=== PATIENT | male | born 1945 | race Hispanic/Latino ===

== ENCOUNTER → 2019-09-23 | Day surgery (SDC) | payer OTHER ==
[2019-09-21 10:06] LABS: BASOPHILS # (AUTO) 0.1 (0.0-0.1); EOSINOPHILS # (AUTO) 0.1 (0.0-0.4); EOSINOPHILS % 2.2 % (0.0-6.0); HEMATOCRIT 42.5 % (38.2-49.6); LYMPHOCYTES # (AUTO) 1.6 (1.0-3.2); LYMPHOCYTES % 33.1 % (18.0-39.1); MEAN CORPUSCULAR HEMOGLOBIN 30.5 pg (28-32); MEAN CORPUSCULAR HGB CONC 32.9 g/dL (31-35); MEAN CORPUSCULAR VOLUME 92.6 fL (81-99); MONOCYTES # (AUTO) 0.5 (0.2-0.8); MONOCYTES % 10.2 % (4.4-11.3); NEUTROPHILS # (AUTO) 2.6 (2.1-6.9); NEUTROPHILS % 53.3 % (38.7-80.0); PLATELET COUNT 207 x10e3/uL (140-360); RED BLOOD COUNT 4.59 x10e6/uL (4.3-5.7); RED CELL DISTRIBUTION WIDTH 12.5 % (11.7-14.4)
[~2019-09-23] MED LIST: FENTANYL CITRATE/PF 100MCG/2 ML INJ ONE; LEVOTHYROXINE112 MCG PO; MUCINEX DM ER1 EACH PO; PROPOFOL IV EMULSION 10 MG/ML 50 ML VIAL ONE; VALSARTAN-HCTZ1 EAC3 PO
--- OUTSIDE RECORDS SUMMARY | 2019-09-23 07:18 | XMS REPORT ---
Author Organization Unknown Address [address] [place] [address] Phone [phone] Care Team Providers Care Hybrid Technologist Name Role Phone FRANSICO "ADELINE" IRIS WEST 3 [phone] Allergies Code Code System Name Reaction Severity Status Onset No Known Allergies Active Medications Name Status Start Date Stop Date amoxicillin 500 mg capsule Completed 09/04/2016 clarithromycin 250 mg tablet Completed 09/04/2016 Depo-Medrol 80 mg/mL suspension for injection injected 1 ml deep IM, once, as a single dose Active Not available diclofenac sodium 75 mg tablet,delayed release Active Not available fluticasone 50 mcg/actuation nasal spray,suspension alicar 2 esprays en cada fosa nasal magdaleno vez cada marcos Active Not available Fluzone High-Dose (PF) 180 mcg/0.5 mL intramuscular syringe Completed 09/04/2016 levocetirizine 5 mg tablet Completed 12/19/2017 levothyroxine 100 mcg tablet Active Not available losartan 100 mg tablet Completed 09/04/2016 losartan 100 mg-hydrochlorothiazide 25 mg tablet Active Not available pantoprazole 40 mg tablet,delayed release Active Not available Prevnar 13 (PF) 0.5 mL intramuscular syringe Completed 02/12/2017 promethazine-DM 6.25 mg-15 mg/5 mL syrup jose carlos 1 cucharadita por via oral cada 4 horas por symone necesaria Active Not available Problems Name Status Onset Date Source Hypothyroidism Active 02/01/2016 History Pure Hypercholesterolemia Active 02/01/2016 History Impotence Active 02/01/2016 History Pterygium Unknown 02/01/2016 History Hypertensive Disorder Active 02/01/2016 History Long-term Current Use of Drug Therapy Unknown 02/01/2016 History Gastroesophageal Reflux Disease Active 02/07/2017 Joint Pain Active 02/07/2017 Procedures Date Name Performed by 11/17/2000 Cholecystectomy Information not available Lab Results Date Name Specimen Result Interpretation Description Value Range Status Address 08/04/2017 CMP, Serum or Plasma Normal Glucose 93 mg/dL 65-99 mg/dL Final [facility] Laboratory: [address] [place] Normal Urea Nitrogen (BUN) 19 mg/dL 7-25 mg/dL Final [facility] Laboratory: [address] [place] Low Creatinine 0.65 mg/dL 0.70-1.18 mg/dL Final [facility] Laboratory: [address] Normal eGFR Non-afr. Honduran 97 mL/min/1.73m2 > or=60 mL/min/1.73m2 Final [facility] [address] [facility] [facility] Normal eGFR 113 mL/min/1.73m2 > or=60 mL/min/1.73m2 Final [facility]: [address] [facility] High BUN/creatinine Ratio 29 (calc) 6-22 (calc) Final [facility]: [address] Normal Sodium 140 mmol/L 135-146 mmol/L Final [facility] Laboratory: [address] [place] [address] Normal Potassium 3.5 mmol/L 3.5-5.3 mmol/L Final [facility] Laboratory: [address] [place] [address] Normal Chloride 106 mmol/L 98-110 mmol/L Final [facility]: [address] [facility] [facility] Normal Carbon Dioxide 27 mmol/L 20-31 mmol/L Final [facility] Laboratory: [address] [place] [address] Normal Calcium 8.8 mg/dL 8.6-10.3 mg/dL Final [facility] Laboratory: [address] [place] [address] Normal Protein, Total 6.3 g/dL 6.1-8.1 g/dL Final [facility] Laboratory: [address] [place] [address] Normal Albumin 4.3 g/dL 3.6-5.1 g/dL Final [facility] Laboratory: [address] Normal Globulin 2.0 g/dL (calc) 1.9-3.7 g/dL (calc) Final [facility] Laboratory: [address] Normal Albumin/globulin Ratio 2.2 (calc) 1.0-2.5 (calc) Final [facility] Laboratory: [address] Normal Bilirubin, Total 0.7 mg/dL 0.2-1.2 mg/dL Final [facility] Laboratory: [address] Normal Alkaline Phosphatase 52 U/L 40-115 U/L Final [facility] Laboratory: [address] Normal Ast 16 U/L 10-35 U/L Final [facility]: [address] Normal Alt 25 U/L 9-46 U/L Final [facility] Laboratory: [address] [place] [address], [place] 08/04/2017 Lipid Panel, Serum Normal Cholesterol, Total 184 mg/dL <200 mg/dL Final [facility] Laboratory: [address] Normal HDL Cholesterol 52 mg/dL >40 mg/dL Final [facility]: [address] Normal Triglycerides 103 mg/dL <150 mg/dL Final [facility] Laboratory: [address] High LDL-cholesterol 111 mg/dL (calc) Final [facility] Laboratory: [address] Normal Chol/hdlc Ratio 3.5 (calc) <5.0 (calc) Final [facility] Laboratory: [address] High Non HDL Cholesterol 132 mg/dL (calc) <130 mg/dL (calc) Final [facility] Laboratory: [address] [place] [address], [place] 08/04/2017 TSH, Serum or Plasma Normal Tsh 1.72 mIU/L 0.40-4.50 mIU/L Final [facility] Laboratory: [address] [address], [place] 08/04/2017 T4, Free, Serum Normal T4, Free 1.5 NG/dL 0.8-1.8 NG/dL Final [facility] Laboratory: [address] 02/12/2017 Lipid Panel, Serum High Cholesterol, Total 206 mg/dL 125- 200 mg/dL Final [facility] Lab: [address] Normal HDL Cholesterol 54 mg/dL > or=40 mg/dL Final [facility] Lab: [address] [place] Normal Triglycerides 77 mg/dL <150 mg/dL Final [facility]: [address] [facility] [place] High LDL-cholesterol 137 mg/dL (calc) <130 mg/dL (calc) Final [facility] Lab: [address], [place] Normal Chol/hdlc Ratio 3.8 (calc) < or=5.0 (calc) Final [facility] Lab: [address], [place] Normal Non HDL Cholesterol 152 mg/dL (calc) Final [facility] Lab: [address], [place] 02/12/2017 CMP, Serum or Plasma Normal Glucose 98 mg/dL 65-99 mg/dL Final [facility]: [address] [facility] [place] Normal Urea Nitrogen (BUN) 13 mg/dL 7-25 mg/dL Final [facility] Lab: [address] [facility], [place] Normal Creatinine 0.75 mg/dL 0.70-1.18 mg/dL Final [facility] Lab: [address] [facility], [place] Normal eGFR Non-afr. Honduran 92 mL/min/1.73m2 > or=60 mL/min/1.73m2 Final [facility] Lab: [address], [place] Normal eGFR 107 mL/min/1.73m2 > or=60 mL/min/1.73m2 Final [facility] Lab: [address], [place] BUN/creatinine Ratio not applicable (calc) 6-22 (calc) Final [facility] Lab: [address], [place] Normal Sodium 141 mmol/L 135-146 mmol/L Final [facility] Lab: [address], [place] Normal Potassium 3.6 mmol/L 3.5-5.3 mmol/L Final [facility] Lab: [address], [place] Normal Chloride 103 mmol/L 98-110 mmol/L Final [facility] Lab: [address], [place] Normal Carbon Dioxide 29 mmol/L 20-31 mmol/L Final [facility] Lab: [address], [place] Normal Calcium 9.2 mg/dL 8.6-10.3 mg/dL Final [facility] Lab: [address], [place] Normal Protein, Total 7.1 g/dL 6.1-8.1 g/dL Final [facility] Lab: [address], [place] Normal Albumin 4.5 g/dL 3.6-5.1 g/dL Final [facility] Lab: [address], [place] Normal Globulin 2.6 g/dL (calc) 1.9-3.7 g/dL (calc) Final [facility] Lab: [address], [place] Normal Albumin/globulin Ratio 1.7 (calc) 1.0-2.5 (calc) Final [facility]: [address] [facility] [place] Normal Bilirubin, Total 1.0 mg/dL 0.2-1.2 mg/dL Final [facility]: [address] [facility] [place] Normal Alkaline Phosphatase 63 U/L 40-115 U/L Final [facility] Lab: [address] [place] [address], [place] Normal Ast 16 U/L 10-35 U/L Final [facility] Lab: [address] [place] [address], [place] Normal Alt 13 U/L 9-46 U/L Final [facility] Lab: [address], [place] 02/12/2017 CBC W/ Auto Diff Normal White Blood Cell Count 6.0 thousand/uL 3.8-10.8 thousand/uL Final [facility] Lab: [address], [place] Normal Red Blood Cell Count 4.78 million/uL 4.20-5.80 million/uL Final [facility] Lab: [address] [place], [place] [address]t [facility], [place] Normal Hemoglobin 14.0 g/dL 13.2-17.1 g/dL Final [facility] Lab: [address], [place] Normal Hematocrit 43.0 % 38.5-50.0 % Final [facility] Lab: [address] [facility], [place] Normal Mcv 89.9 fL 80.0-100.0 fL Final [facility] Lab: [address] [facility], [place] Normal Mch 29.3 pg 27.0-33.0 pg Final [facility] Lab: [address] [facility], [place] Normal Mchc 32.6 g/dL 32.0-36.0 g/dL Final [facility]: [address] [facility] [place] Normal Rdw 13.6 % 11.0-15.0 % Final [facility] Lab: [address], [place] Normal Platelet Count 213 thousand/uL 140-400 thousand/uL Final [facility]: [address] [facility] [place] Normal Mpv 10.9 fL 7.5-12.5 fL Final [facility] Lab: [address], [place] Normal Absolute Neutrophils 3780 cells/uL 9745-6706 cells/uL Final [facility] Lab: [address], [place] Normal Absolute Lymphocytes 1650 cells/uL 850-3900 cells/uL Final [facility] Lab: [address], [place] Normal Absolute Monocytes 468 cells/uL 200-950 cells/uL Final [facility] Lab: [facility] [address], [place] Normal Absolute Eosinophils 90 cells/uL 15-500 cells/uL Final [facility] Lab: [address] [place], [place] [address]t [address], [place] Normal Absolute Basophils 12 cells/uL 0-200 cells/uL Final [facility] Lab: [address] [place] [address], [place] Normal Neutrophils 63.0 % [facility] Lab: [address] [place] [address], [place] Normal Lymphocytes 27.5 % [facility] Lab: [address] [place], [place] [address] [facility], [place] Normal Monocytes 7.8 % [facility] Lab: [address] [place] [address]vd, [place] Normal Eosinophils 1.5 % [facility] Lab: [address] [place] [address], [place] Normal Basophils 0.2 % [facility] Lab: [address] [place] [address], [place] 02/12/2017 T4, Total, Serum Normal T4 (Thyroxine), Total 10.7 mcg/dL 4.5-12.0 mcg/dL Final [facility] Lab: [address] [place] [address], [place] 02/12/2017 TSH, Serum or Plasma Normal Tsh 2.75 mIU/L 0.40-4.50 mIU/L Final [facility] Lab: [address] [place] [address], [place] 02/12/2017 PSA, Serum or Plasma Normal PSA, Total 1.4 NG/mL < or=4.0 NG/mL Final [facility] Lab: [address] [place] [address], [place] 02/12/2017 PSA, Serum or Plasma Normal PSA, Total 1.4 NG/mL < or=4.0 NG/mL Final [facility] Laboratory: [address] [place] 02/12/2017 TSH, Serum or Plasma Normal Tsh 2.75 mIU/L 0.40-4.50 mIU/L Final [facility] Laboratory: [address] [place] 02/12/2017 CBC W/ Auto Diff Normal White Blood Cell Count 6.0 thousand/uL 3.8-10.8 thousand/uL Final [facility]: [address] Normal Red Blood Cell Count 4.78 million/uL 4.20-5.80 million/uL Final [facility] Laboratory: [address] [place] Normal Hemoglobin 14.0 g/dL 13.2-17.1 g/dL Final [facility]: [address] [facility] Normal Hematocrit 43.0 % 38.5-50.0 % Final [facility] Laboratory: [address] [place] Normal Mcv 89.9 fL 80.0-100.0 fL Final [facility]: [address] [facility] Normal Mch 29.3 pg 27.0-33.0 pg Final [facility] Laboratory: [address] [place] Normal Mchc 32.6 g/dL 32.0-36.0 g/dL Final [facility] Laboratory: [address] [place] Normal Rdw 13.6 % 11.0-15.0 % Final [facility] Laboratory: [address] [place] Normal Platelet Count 213 thousand/uL 140-400 thousand/uL Final [facility]: [address] [facility] Normal Mpv 10.9 fL 7.5-12.5 fL Final [facility] Laboratory: [address] [place] Normal Absolute Neutrophils 3780 cells/uL 5980-0690 cells/uL Final [facility]: [address] [facility] Normal Absolute Lymphocytes 1650 cells/uL 850-3900 cells/uL Final [facility]: [address] [facility] Normal Absolute Monocytes 468 cells/uL 200-950 cells/uL Final [facility]: [address] [facility] Normal Absolute Eosinophils 90 cells/uL 15-500 cells/uL Final [facility]: [address] [place] Normal Absolute Basophils 12 cells/uL 0-200 cells/uL Final [facility] Laboratory: [address], [place] Normal Neutrophils 63.0 % Final [facility] Laboratory: [address], [place] Normal Lymphocytes 27.5 % Final [facility] Laboratory: [address], [place] Normal Monocytes 7.8 % Final [facility] Laboratory: [address], [place] Normal Eosinophils 1.5 % Final [facility] Laboratory: [address], [place] Normal Basophils 0.2 % Final [facility]: [address] [facility] 02/12/2017 CMP, Serum or Plasma Normal Glucose 98 mg/dL 65-99 mg/dL Final [facility] Laboratory: [address] [place] [address] Normal Urea Nitrogen (BUN) 13 mg/dL 7-25 mg/dL Final [facility] Laboratory: [address] Normal Creatinine 0.75 mg/dL 0.70-1.18 mg/dL Final [facility] Laboratory: [address] Normal eGFR Non-afr. Honduran 92 mL/min/1.73m2 > or=60 mL/min/1.73m2 Final [facility] Laboratory: [address] [place] [address] Normal eGFR 107 mL/min/1.73m2 > or=60 mL/min/1.73m2 Final [facility] Laboratory: [address] BUN/creatinine Ratio not applicable (calc) 6-22 (calc) Final [facility] Laboratory: [address] [place] [address] Normal Sodium 141 mmol/L 135-146 mmol/L Final [facility]: [address] [facility] Normal Potassium 3.6 mmol/L 3.5-5.3 mmol/L Final [facility]: [address] [facility] Normal Chloride 103 mmol/L 98-110 mmol/L Final [facility]: [address] Normal Carbon Dioxide 29 mmol/L 20-31 mmol/L Final [facility] Laboratory: [address] Normal Calcium 9.2 mg/dL 8.6-10.3 mg/dL Final [facility] Laboratory: [address] Normal Protein, Total 7.1 g/dL 6.1-8.1 g/dL Final [facility] Laboratory: [address] Normal Albumin 4.5 g/dL 3.6-5.1 g/dL Final [facility] Laboratory: [address] Normal Globulin 2.6 g/dL (calc) 1.9-3.7 g/dL (calc) Final [facility] Laboratory: [address] Normal Albumin/globulin Ratio 1.7 (calc) 1.0-2.5 (calc) Final [facility] Laboratory: [address] Normal Bilirubin, Total 1.0 mg/dL 0.2-1.2 mg/dL Final [facility] Laboratory: [address] Normal Alkaline Phosphatase 63 U/L 40-115 U/L Final [facility]: [address] Normal Ast 16 U/L 10-35 U/L Final [facility]: [address] Normal Alt 13 U/L 9-46 U/L Final [facility] Laboratory: [address] 02/12/2017 Lipid Panel, Serum High Cholesterol, Total 206 mg/dL 125- 200 mg/dL Final [facility] Laboratory: [address] Normal HDL Cholesterol 54 mg/dL > or=40 mg/dL Final [facility]: [address] Normal Triglycerides 77 mg/dL <150 mg/dL Final [facility] Laboratory: [address] High LDL-cholesterol 137 mg/dL (calc) <130 mg/dL (calc) Final [facility] Laboratory: [address] Normal Chol/hdlc Ratio 3.8 (calc) < or=5.0 (calc) Final [facility] Laboratory: [address] Normal Non HDL Cholesterol 152 mg/dL (calc) Final [facility] Laboratory: [address] 02/12/2017 T4, Total, Serum Normal T4 (Thyroxine), Total 10.7 mcg/dL 4.5-12.0 mcg/dL Final [facility] Laboratory: [address] [place] [address], [place] Past Encounters 12/19/2017 Body Mass Index 25-29 - Overweight; Seasonal Allergic Rhinitis; Persistent Cough Fransico Pagan MD: [address] [place] [phone], Ph. 08/27/2017 Influenza Vaccination Yana Hughes PA: [id number] [phone], Ph. 08/04/2017 Hypertensive Disorder; Hypothyroidism; Joint Pain; Gastroesophageal Reflux Disease EDOUARD MckeonP: [address] [place] [phone], Ph. 02/12/2017 Adult Health Examination; Hypertensive Disorder; Pure Hypercholesterolemia; Hypothyroidism; Gastroesophageal Reflux Disease; Impotence; Seasonal Allergic Rhinitis; Screening for Malignant Neoplasm of Colon; Screening for Malignant Neoplasm of Prostate; Osteoarthritis of Multiple Joints; Body Mass Index 25-29 - Overweight; Advance Directive Discussed with Patient Fransico Pagan MD: [id number] [phone], Ph. 02/07/2017 Hypertensive Disorder; Hypothyroidism; Gastroesophageal Reflux Disease; Joint Pain; Allergic Rhinitis Yana Hughes PA: [address] [place] [phone], Ph. 09/24/2016 Immunization NIRAJ Mckeon: [id number] [phone], Ph. 09/04/2016 Fever NIRAJ Mckeon: [id number] [phone], Ph. Social History Smoking Status Never Smoker Vaccine List Vaccine Type influenza, high dose seasonal 09/24/20160.5 mL 08/27/20170.5 mL pneumococcal conjugate PCV 13 12/26/2016 Plan of Care Patient Instructions Increase PO fluids. Check temp at home every afternoon when symptoms arise. Call or RTC for worsening of symptoms or no improvement in 2-3 days. Reminders Provider Appointments None recorded. Lab None recorded. Referral None recorded. Procedures None recorded. Surgeries None recorded. Imaging None recorded. Vitals 12/19/2017 02:15PM Est Patient Height Weight BMI Blood Pressure 5 ft 5 in 168.6 lbs 28.1 kg/m2 133/90 mm[Hg] 08/04/2017 11:30AM Est Patient Height Weight BMI Blood Pressure 5 ft 5 in 169.2 lbs 28.2 kg/m2 (1) 145/88 mm[Hg] (2) 136/82 mm[Hg] 02/12/2017 09:00AM WHIP OPERATOR/EST CPX Height Weight BMI Blood Pressure 5 ft 5 in 172.8 lbs 28.8 kg/m2 125/78 mm[Hg] 02/07/2017 09:30AM WHIP OPERATOR/EST CPX Height Weight BMI Blood Pressure 5 ft 5 in 173.5 lbs 28.9 kg/m2 143/87 mm[Hg] 09/04/2016 11:15AM Est Patient Height Weight BMI Blood Pressure 5 ft 5 in 167.6 lbs 27.9 kg/m2 139/92 mm[Hg] 04/08/2016 Height Weight BMI Blood Pressure 5 ft 5 in 170.6 lbs 28.39 kg/m2 139/83 mm[Hg] 04/01/2016 Height Weight BMI Blood Pressure 5 ft 5 in 173.4 lbs 28.85 kg/m2 138/77 mm[Hg] 02/29/2016 Height Weight BMI Blood Pressure 5 ft 5 in 172.4 lbs 28.69 kg/m2 137/86 mm[Hg] 02/01/2016 Height Weight BMI Blood Pressure 5 ft 5 in 173 lbs 28.79 kg/m2 127/74 mm[Hg] 11/09/2015 Height Weight Blood Pressure 5 ft 5 in 172.8 lbs 128/86 mm[Hg] 11/09/2015 BMI 28.75 kg/m2 06/16/2015 Height Weight BMI Blood Pressure 5 ft 5 in 179.2 lbs 29.82 kg/m2 134/71 mm[Hg] 02/10/2015 Height Weight BMI Blood Pressure 5 ft 5 in 174.6 lbs 29.05 kg/m2 140/80 mm[Hg] 02/08/2015 Height Weight BMI Blood Pressure 5 ft 5 in 175.2 lbs 29.15 kg/m2 120/80 mm[Hg] 02/06/2015 Height Weight BMI Blood Pressure 5 ft 5 in 176.6 lbs 29.38 kg/m2 130/77 mm[Hg] 12/12/2014 Height Weight BMI Blood Pressure 5 ft 5 in 175 lbs 29.12 kg/m2 122/80 mm[Hg] 03/22/2014 Height Weight 5 ft 5 in 171 lbs 03/08/2014 Height 5 ft 5 in 03/08/2014 Weight 176.4 lbs 12/20/2013 Height Weight 5 ft 5 in 175.8 lbs 10/11/2013 Height Weight 5 ft 5 in 174 lbs 09/14/2013 Height Weight 5 ft 5 in 172.6 lbs 08/12/2013 Height Weight 5 ft 5 in 170.6 lbs 01/13/2013 Height Weight 5 ft 5 in 175.4 lbs 10/16/2012 Height Weight 5 ft 5 in 172.2 lbs 08/28/2012 Height Weight 5 ft 5 in 174.6 lbs 06/18/2012 Height Weight 5 ft 5 in 173.8 lbs 05/19/2012 Height Weight 5 ft 5 in 174.6 lbs 03/02/2012 Height Weight 5 ft 5 in 173.8 lbs 01/01/2012 Height Weight 5 ft 5 in 177.8 lbs 11/30/2011 Height Weight 5 ft 5 in 175.2 lbs 11/26/2011 Height Weight 5 ft 5 in 174.2 lbs 08/16/2011 Height Weight 5 ft 5 in 173.6 lbs 12/26/2010 Height Weight 5 ft 5 in 176 lbs 11/06/2010 Height Weight 5 ft 5 in 174.8 lbs 10/05/2010 Height Weight 5 ft 5 in 172 lbs 08/16/2010 Height Weight 5 ft 5 in 170 lbs 07/17/2010 Height Weight 5 ft 5 in 171.2 lbs
[2019-09-23 10:20] VITALS: BP 115/62
== END | disposition home or self-care (01) ==
LOC: OR 07:15
PROVIDERS: ATTEND Internal Medicine Gastroenterology
DX: Z12.11 Encounter for screening for malignant neoplasm of colon (principal); D12.2 Benign neoplasm of ascending colon; K64.8 Other hemorrhoids; Z71.3 Dietary counseling and surveillance; E66.3 Overweight; I10 Essential (primary) hypertension; E03.9 Hypothyroidism, unspecified; Z01.812 Encounter for preprocedural laboratory examination; Z68.27 Body mass index [BMI] 27.0-27.9, adult
CPT/HCPCS: 36415; 45380; 85025; 88305; J2704; J3010; 45378; 45384